=== PATIENT | male | born 1950 | race Caucasian/White ===

== ENCOUNTER → 2020-12-18 | Outpatient (CLI) | payer OTHER | LOC: KOH-I 14:19 | DX: R10.84 Generalized abdominal pain (principal); N20.0 Calculus of kidney | CPT/HCPCS: 74176 ==

== ENCOUNTER → 2021-01-30 | Outpatient (CLI) | payer OTHER, MEDICARE, BC | LOC: HEART 5 07:50 → CT 09:30 | DX: R22.2 Localized swelling, mass and lump, trunk (principal); R06.02 Shortness of breath | CPT/HCPCS: 71250; 78452; A9502; J2785 ==

== ENCOUNTER → 2021-04-22 | Outpatient (CLI) | payer MEDICARE, BC | LOC: MRI 11:31 | DX: R22.2 Localized swelling, mass and lump, trunk (principal); G31.9 Degenerative disease of nervous system, unspecified; R90.89 Other abnormal findings on diagnostic imaging of central nervous system | CPT/HCPCS: 36415; 70553; 82565; 84520; A9577 ==